=== PATIENT | male | born 1985 | race Two or more races ===

== ENCOUNTER 2022-02-24 10:59 | Emergency (ER) | payer MEDICAID ==
[~2022-02-24] VITALS: Ht 175.3 cm; Wt 102.5 kg
[2022-02-24 12:09] VITALS: BP 116/68
[2022-02-24] MEDS ORDERED: IBUP600T27 PO ×2 (13:02→13:04)
== END 2022-02-24 13:54 | disposition home or self-care (01) ==
LOC: ER 10:59
DX: S93.401A Sprain of unspecified ligament of right ankle, initial encounter (principal); X50.1XXA Overexertion from prolonged static or awkward postures, initial encounter; Y93.89 Activity, other specified; Y92.89 Other specified places as the place of occurrence of the external cause; Y99.8 Other external cause status
CPT/HCPCS: 73610